=== PATIENT | male | born 1950 | race Caucasian/White ===

== ENCOUNTER 2018-08-27 22:31 | Observation (INO) | payer MEDICARE, BC ==
[2018-08-27 23:55] LABS: Mean Corpuscular HGB CONC 33.3 g/dL (32.0-36.0); Mean Corpuscular Hemoglobin 31.7 pg (27.0-31.0); Mean Corpuscular Volume 95.3 fL (78.0-98.0); Mean Platelet Volume 7.1 fL (7.4-10.4); Platelet Count 193 thou/uL (130-400); RBC Distribution Width 12.7 % (11.5-14.5); Red Blood Cell (RBC) Count 5.05 mill/uL (4.70-6.10); White Blood Cell (WBC) Count 7.3 thou/uL (4.8-10.8)
[2018-08-28 00:04] LABS: ALT (SGPT) 48 U/L (8-55); AST (SGOT) 71 U/L (5-34); Acetaminophen Less than 6.0 mcg/mL (10.0-30.0); Albumin 3.9 g/dL (3.4-4.8); Alcohol Less than 10 mg/dL (Less than 10); Alkaline Phosphatase 67 U/L (40-150); Anion Gap 13 mmol/L (10-20); BUN (Urea Nitrogen) 11 mg/dL (8.4-25.7); Bilirubin, Total 0.8 mg/dL (0.2-1.2); Calc. Creatinine Clearance 0 mL/min (70-130); Calcium 9.2 mg/dL (7.8-10.44); Carbon Dioxide 27 mmol/L (23-31); Chloride 99 mmol/L (98-107); Estimated GFR-MDRD Greater than 90; Globulin 2.9 g/dL (2.4-3.5); Glucose 111 mg/dL (80-115); Potassium 3.4 mmol/L (3.5-5.1); Protein, Total 6.8 g/dL (5.8-8.1); Salicylate Less than 8.0 mg/dL (15.0-30.0); Sodium 136 mmol/L (136-145)
[2018-08-28 00:15] LABS: Band 5 % (5-11); Eosinophils 10 % (0-10); Lymphocytes 15 % (21-51); MDiff Complete? YES; Monocytes 14 % (0-10); Neutrophil 56 % (42-75)
[2018-08-28 00:43] LABS: Bilirubin Negative (Negative); Blood, Urine Negative (Negative); Clarity CLEAR (Clear); Glucose, Urine (Dipstick) Negative (Negative); Leukocyte Negative (Negative); Nitrite Negative (Negative); Protein, Urine (Dipstick) Negative (Neg-Trace); Specific Gravity, Urine 1.005 (1.002-1.036); Urobilinogen 0.2 mg/dL (0.2-1.0); pH, Urine 6.5 (5.0-9.0)
[2018-08-28 00:53] LABS: Amphetamine Not Detected (NotDetected); Barbiturates Screen Not Detected (NotDetected); Benzodiazepine Screen Not Detected (NotDetected); Cocaine Metabolite Screen Not Detected (NotDetected); Medtox Control Line Valid? VALID (VALID); Medtox Reader # READER 4; Methadone Not Detected (NotDetected); Methamphetamine Not Detected (NotDetected); Opiate Screen Not Detected (NotDetected); Oxycodone Screen Not Detected (NotDetected); Phencyclidine (PCP) Not Detected (NotDetected); THC/Cannabinoid Screen Not Detected (NotDetected); Tricyclic Screen Not Detected (NotDetected)
[2018-08-28 04:30] VITALS: BMI 32.7
[2018-08-28] MEDS ORDERED: Acetaminophen/Codeine 30-300mg Tablet PO PRN (04:57)
[2018-08-28] MEDS ORDERED: Nitroglycerin 0.4 MG TAB (25 Tab Bottle) PO PRN (05:49)
[2018-08-28] MEDS ORDERED: Calcium Carbonate 500 MG ChewTAB PO PRN (05:51)
[2018-08-28] MEDS ORDERED: Ondansetron ODT 4 MG TAB PO PRN (05:51)
[2018-08-28] MEDS ORDERED: Ondansetron PF 4 MG/2 ML Vial IVP PRN (05:51)
--- NOTE | 2018-08-28 06:35 | HP ---
PRIMARY CARE PHYSICIAN: Dr. Gigi Fraser. CHIEF COMPLAINT: Seizure. HISTORY OF PRESENT ILLNESS: The patient is a 68-year-old male with hypertension, presented to the emergency room with above complaints. History obtained from the patient and ER records. No family at the bedside. The patient felt apparently normal last night when he went to sleep. He had an episode of seizure, while he was sleeping. According to the spouse, the patient was apneic and unresponsive at that time. The spouse started doing CPR on the patient with rescue breaths. He also bit his tongue. There is no incontinence reported. No previous episode of seizure. He had mild headache, which has resolved. He also had left ankle tenderness after the above episode. He denies any ankle pain prior to the seizure episode. He denies any chest pain, palpitations, lightheadedness, dizziness, or syncope. Three to four months ago, he was found to have lightheadedness and dizziness, which was attributed to hypertension. He was started on hydrochlorothiazide at that time. PAST MEDICAL HISTORY: 1. Hypertension. 2. Degenerative joint disease. PAST SURGICAL HISTORY: 1. Right ankle surgery. 2. Right knee surgery. 3. Colon resection. ALLERGIES: THE PATIENT IS ALLERGIC TO SULFA. CURRENT HOME MEDICATIONS: 1. Hydrochlorothiazide 25 mg daily. 2. Multivitamin one tablet daily. 3. Aspirin 81 mg daily. 4. Tylenol as needed. SOCIAL HISTORY: The patient currently lives at home with his family. He makes his own decision with the help of his spouse. He is a former smoker. No current use of alcohol, tobacco, or drug use. FAMILY HISTORY: Negative for heart disease, CVA, or seizures. REVIEW OF SYSTEMS: All other review of systems was reviewed and were found negative. PHYSICAL EXAMINATION: VITAL SIGNS: Temperature 98.1, respirations 18, pulse rate of 93, blood pressure of 143/92 with O2 saturation 94% on room air. GENERAL: A 68-year-old male, in no apparent distress. HEENT: Head, atraumatic and normocephalic. Sclerae anicteric. Moist mucous membranes. No oral lesion except for erythema over the left side of the tongue from tongue biting. NECK: Supple. No JVD. No carotid bruit. No neck stiffness. LUNGS: Clear to auscultation bilaterally. No wheezing, rales, or rhonchi. HEART: S1 and S2 present. Regular rate and rhythm. No rubs or gallops appreciated. 2/6 systolic murmur over the mitral area. ABDOMEN: Soft, nontender. Bowel sounds present. EXTREMITIES: No edema or calf tenderness. NEUROLOGIC: Cranial nerves 2 through 12 are normal on examination. Power was 5/5 in all extremities. Ckhhas-wa-klxt and dlhu-mr-uyli tests were normal. Reflexes were equivocal. PSYCHIATRY: Alert, awake, and oriented x3. Normal affect. MUSCULOSKELETAL: No joint swelling or tenderness except for some discomfort in the left ankle with splint in place. SKIN: Warm and dry. LYMPH NODES: No palpable lymph nodes in the neck. PERIPHERAL VASCULAR: Radial pulses palpable bilaterally. LABORATORY FINDINGS: WBC 7.3 with hemoglobin 16, hematocrit 48.2, and platelet count of 193. Sodium 136, potassium 3.4, chloride 99, bicarb 27, BUN 11, creatinine 0.81, prolactin 17.7, and magnesium 2.0. UDS was negative. Urinalysis was negative. CT scan of the brain by my review was negative for acute findings. EKG by my review showed sinus rhythm with incomplete right bundle-branch block. IMPRESSION: 1. New onset seizure of unclear etiology. 2. History of dizziness. 3. Incomplete right bundle-branch block. 4. Hypertension. 5. Hypokalemia. 6. Obesity with a BMI of 32.7. 7. Mild headache, improved. 8. Left ankle pain of unclear etiology. X-rays were negative for fracture. 9. Encephalopathy secondary to seizure, improved. PLAN: The patient will be monitored in the stroke unit. Neurology will be consulted. We will get MRI of the brain. Seizure precaution. Gentle IV hydration. We will get EEG. We will hold antiepileptics for now. We will also add echocardiogram due to dizziness. We will recheck labs in a.m. Plan of care was discussed with the patient in detail. He stated understanding. Job ID: [id number]
[2018-08-28] MEDS: NS 0.9% w/ 20 MEQ KCL 1,000 ML/1,000 ML BAG IV SCH ×2 (06:53→18:11)
--- NOTE | 2018-08-28 08:44 | CT ---
PRELIMINARY REPORT/[facility]/EMERGENCY AFTER HOURS PROCEDURE: EXAM: CT Head Without Contrast EXAM DATE/TIME: 08/28/2018 12:26 AM CLINICAL HISTORY: 68 years old, male; Signs and symptoms; Other: Seizure; Patient HX: 68m presents for evaluation of po ssible seizure prior to arrival. PT is unsure of what happened. PT sreports his found him seizin g but he has no recollection of the events. PT says he woke up to 2 medics tending to him. Recalls having a normal day with nothing unusual happening. Surgical HX of resected colon d/t diverti culitis. PT denies headache. TECHNIQUE: Imaging protocol: Axial computed tomography images of the head/brain without contrast. COMPARISON: No relevant prior studies available. FINDINGS: Brain: No hemorrhage. No significant white matter disease. No edema. Ventricles: No ventriculomegaly. Bones/joints: Unremarkable. No acute fracture. Sinuses: Visualized sinuses are unremarkable. No acute sinusitis. Mastoid air cells: Visualized mastoid air cells are unremarkable. No mastoid effusion. Soft tissues: Unremarkable. IMPRESSION: No acute intracranial abnormality. Thank you for allowing us to participate in the care of your patient. Dictated and Authenticated by: Francis Servin MD 08/28/2018 1:04 AM Central Time ([place] & [place]) FINAL REPORT CT OF THE BRAIN WITHOUT CONTRAST: Date: 08/27/18 INDICATION: History of seizure. IMPRESSION: I agree with the preliminary report provided by [facility]. No acute intracranial abnormality is evident. POS:
[2018-08-28] MEDS: Acetaminophen 325 MG TAB PO PRN ×2 (08:58→20:29)
--- NOTE | 2018-08-28 09:34 | RAD ---
LEFT ANKLE 3 VIEWS: Date: 08/28/18 INDICATION: Seizure and fall. COMPARISON: None. FINDINGS: There is ankylosis of the distal tibia and fibula syndesmosis. There is severe osteoarthrosis of the tibiotalar joint. There is prominent enthesopathic change off the calcaneus. There is soft tissue swe lling surrounding the hindfoot. No acute fracture is evident. IMPRESSION: Prominent post-traumatic/post operative osseous changes. There is soft tissue swelling. No acute frac ture is evident. POS: BH
--- NOTE | 2018-08-28 10:45 | MRI ---
MRI OF THE BRAIN WITHOUT IV CONTRAST: Date: 08/28/18 INDICATION: New onset seizures. COMPARISON: CT of the brain without contrast dated 08/28/18. FINDINGS: There is mild chronic small vessel white matter ischemic change. No restricted diffusion is evident. Motion artifact slightly limits image detail. There are appropriate flow-voids within the major intra cranial vessels. Septum pellucidum and third ventricle are midline. Skull and extracranial soft tissu es appear within normal limits. There are bilateral mastoid effusions. There is mild mucosal thickeni ng within the ethmoid air cells. IMPRESSION: 1. No acute intracranial abnormality. 2. Mild chronic small vessel white matter ischemic change. 3. Bilateral partial effusions of mastoid air cells. 4. Mild paranasal sinus disease. POS: BH
--- NOTE | 2018-08-28 11:59 | PDOC.PN ---
- Subjective Encounter Start Date: 08/28/18 Encounter Start Time: 11:57 Mr. Weiss was seen today in follow-up of seizures. He does not have any complaints today. He denies chest pain or shortness of breath. He denies having any problems prior to having the seizure that night. He was notes to be hypoxemic by his nurse earlier today when he was laying down. He did not have any symptoms during the episode - Objective Resuscitation Status - Order Detail: 08/28/18 05:51 Resuscitation Status Routine Resuscitation Status: FULL: Full Resuscitation MAR Reviewed: Yes Vital Signs & Weight: Vital Signs (12 hours) Temp Pulse Resp BP Pulse Ox 08/28/18 08:00 98.5 F 86 18 152/91 H 93 L 08/28/18 04:15 97.8 F 94 18 134/85 95 Weight Weight 215 lb 4.8 oz I&O: 08/27/18 08/28/18 08/29/18 06:59 06:59 06:59 Intake Total 100 Balance 100 Result Diagrams: 08/27/18 23:33 08/27/18 23:33 Phys Exam - Physical Examination HEENT: PERRLA + rhonchi at both bases Cardiovascular: RRR, no significant murmur, no rub Gastrointestinal: soft, non-tender, no distention, positive bowel sounds Musculoskeletal: no edema, pulses present Dx/Plan (1) Seizure Code(s): R56.9 - UNSPECIFIED CONVULSIONS Status: Acute (2) Hypoxemia Code(s): R09.02 - HYPOXEMIA Status: Acute (3) Hypertension Code(s): I10 - ESSENTIAL (PRIMARY) HYPERTENSION Status: Acute (4) Obesity (BMI 30.0-34.9) Code(s): E66.9 - OBESITY, UNSPECIFIED Status: Acute - Plan * Seizure- ? etiology- MRI of the brain was negative for Acute CVA * Neurology has recommended starting Keppra * HTN- blood pressure is a bit elevated- will monitor * Hypoxemia- will check a CXR, and D-Dimer, he may need CTA of the chest. He may also benefit from an Outpatient sleep study
[2018-08-28 12:45] LABS: Troponin I Less than 0.010 ng/mL (< 0.028)
--- NOTE | 2018-08-28 13:03 | RAD ---
EXAM: Two views chest PROVIDED CLINICAL HISTORY: Hypoxemia COMPARISON: None FINDINGS: Cardiac and mediastinal silhouette appears within normal limits. Chronic appearing interstitial opaci ty and possible emphysematous change. Advanced bilateral glenohumeral arthrosis. No pleural fluid or pneumothorax apparent. IMPRESSION: Chronic appearing interstitial opacities and emphysematous change. No evidence for an acute cardiopul monary process.
--- NOTE | 2018-08-28 23:41 | CON ---
DATE OF CONSULTATION: 08/28/2018 CHIEF COMPLAINT: Seizure. HISTORY OF PRESENT ILLNESS: The patient reports his watched him have a seizure between 6 to 7 p.m. yesterday. He quit breathing. He bit his tongue and urinated in the bed. She started doing CPR and brought him to the hospital. The patient never had a seizure before and he has been quite healthy. He did have a dizzy spell 6 months ago due to hypertension, but not seizures. Currently, he is back to baseline. PREVIOUS MEDICAL HISTORY: Hypertension, he has been on hydrochlorothiazide for it and degenerative joint disease. PREVIOUS SURGICAL HISTORY: Right ankle surgery, right knee surgery, and colon resection due to infection. ALLERGIES: HE IS ALLERGIC TO SULFA. MEDICATIONS: At home, hydrochlorothiazide, multivitamin, aspirin, and Tylenol as needed. SOCIAL HISTORY: Lives at home with his family and he is a former smoker. Does not drink alcohol. FAMILY HISTORY: His mother at 92 years of age. Father young when the patient was 6 years old. He has a sister who is 71 years old and healthy. REVIEW OF SYSTEMS: PULMONARY: Negative for lung problems. GI: Negative for any bleeding, diarrhea, or vomiting. NEUROLOGICAL: Positive for seizure. DERMATOLOGIC: Negative for skin rash or itching. HEMATOLOGIC: Negative for bleeding diathesis. OPHTHALMOLOGIC: Negative for any eye problems. ENT: Negative for any hearing issues. LABORATORY DATA: White count was 7.3, hemoglobin 16, hematocrit 48.2, platelet count 193. D-dimer 1.98. Chemistry; sodium 136, potassium 3.4, chloride 99, bicarb 27, anion gap 13, BUN 11, creatinine 0.81, glucose 111. Liver functions were within normal limits. UA was negative. Urine tox negative. His MRI of the brain was completed today and MRI showed no acute intracranial abnormality. Mild chronic small-vessel white matter ischemic change. Bilateral partial effusions of mastoid air cells. Mild paranasal sinus disease. PHYSICAL EXAMINATION: VITAL SIGNS: Blood pressure 152/91, temperature 98.5, pulse 86, respiratory rate 18. CHEST: Clear vesicular breathing. CARDIOVASCULAR: S1 and S2 heard. No murmurs. HEENT: Examination of oral cavity, he had tongue biting on the left side. NEUROLOGIC: Higher intellectual functions, normal orientation to time, place, and person and appropriate conversation. Cranial nerves 2 through 12, normal extraocular movements. Pupils are 2 mm, reactive to light bilaterally and normal sensation of face bilaterally. Tongue midline. No atrophy noted. Normal elevation of palate. Motor examination, bulk normal, tone normal, strength 5/5 in upper and lower extremities bilaterally. Muscle groups tested are iliopsoas, hamstrings, quadriceps, ankle dorsiflexion, plantar flexion, deltoid, biceps, triceps, wrist extension and flexion, finger extension and flexion bilaterally. His sensory exam was normal to touch bilaterally in upper and lower extremities and his deep tendon reflexes were 2+ throughout and gait not tested. He did have some ankle pain in the left leg due to his ankle getting twisted in the process. IMPRESSION: The patient with a seizure yesterday with tongue biting and he had to have CPR performed. He is at risk for future seizures. His MRI is negative and at this time, his neurological examination is essentially normal. TREATMENT RECOMMENDATIONS: Please place the patient on IV Keppra and EEG tomorrow and please call Neurology if you have any further questions. Job ID: [id number]
[2018-08-29 05:44] LABS: #Eosinphils 0.2 thou/uL (0.0-0.7); #Lymphocytes 1.5 thou/uL (1.20-3.40); #Neutrophils 4.9 thou/uL (1.40-6.50); %Basophils 0.5 % (0.0-1.0); %Eosinophils 3.2 % (0.0-10.0); %Lymphocytes 19.1 % (21.0-51.0); %Monocytes 12.5 % (0.0-10.0); %Neutrophils 64.8 % (42.0-75.0); Hemoglobin 14.7 g/dL (14.0-18.0); Mean Corpuscular HGB CONC 32.7 g/dL (32.0-36.0); Mean Corpuscular Hemoglobin 31.6 pg (27.0-31.0); Mean Corpuscular Volume 96.7 fL (78.0-98.0); Mean Platelet Volume 7.5 fL (7.4-10.4); Platelet Count 155 thou/uL (130-400); RBC Distribution Width 12.9 % (11.5-14.5); Red Blood Cell (RBC) Count 4.66 mill/uL (4.70-6.10); White Blood Cell (WBC) Count 7.6 thou/uL (4.8-10.8)
[2018-08-29 06:03] LABS: Albumin 3.4 g/dL (3.4-4.8); Anion Gap 11 mmol/L (10-20); BUN (Urea Nitrogen) 9 mg/dL (8.4-25.7); BUN/Creatinine Ratio 14.52; Calc. Creatinine Clearance 158 mL/min (70-130); Calcium 8.2 mg/dL (7.8-10.44); Carbon Dioxide 23 mmol/L (23-31); Chloride 108 mmol/L (98-107); Estimated GFR-MDRD Greater than 90; Glucose 90 mg/dL (80-115); Phosphorus 2.4 mg/dL (2.3-4.7); Potassium 3.4 mmol/L (3.5-5.1); Sodium 139 mmol/L (136-145)
[2018-08-29] MEDS: NS 0.9% w/ 20 MEQ KCL 1,000 ML/1,000 ML BAG IV SCH ×2 (06:20→16:13)
[2018-08-29] MEDS ORDERED: Iopamidol 370 76% 100 ML VIAL ONE (09:37)
--- NOTE | 2018-08-29 11:03 | CT ---
Exam: CTA of the chest HISTORY: Elevated d-dimer and hypoxia COMPARISON: None TECHNIQUE: Multiple contiguous axial images were obtained a CTA of the chest with contrast per pulmon juancarlos embolism protocol. 3-D oblique MIP reformats and direct coronal reformats were performed. FINDINGS: HEART: Normal in size without focal cardiac abnormality. Calcification are seen in the coronary arter ies. PULMONARY ARTERIES: Normal in caliber without filling defects to suggest pulmonary emboli. MEDIASTINUM: No hilar or mediastinal lymphadenopathy. LUNGS: No focal infiltrates or masses. Increased interstitial markings are seen along the periphery o f the bilateral lower lobes. PLEURAL SPACE: No pleural effusion or pneumothorax. CHEST WALL SOFT TISSUES: Unremarkable VISUALIZED OSSEOUS STRUCTURES: Degenerative changes are seen in the spine. VISUALIZED SUBDIAPHRAGMATIC STRUCTURES: Unremarkable IMPRESSION: No evidence of pulmonary thromboembolism
[2018-08-29 15:36] VITALS: TEMP 99.2
[2018-08-29 15:48] VITALS: BP 132/96
--- NOTE | 2018-08-30 09:42 | EEG ---
Referring Physician: Patti LAINEZ EEG # [id number] TEST TYPE: ROUTINE PORTABLE INPATIENT REPORT: AN EEG USING THE INTERNATIONAL TEN-TWENTY SYSTEM OF ELECTRODE PLACEMENT WAS PERFORMED. The waking background is a medium amplitude 9 hertz alpha frequency. The patient became drowsy, but no sleep was seen. Photic stimulation was unremarkable. No epileptiform features were seen. IMPRESSION: THIS IS A NORMAL AWAKE AND DROWSY EEG. [employer] T[employer] Inspector: ERASMO Toy Stuffer: [email or web address] SMITH
== END 2018-08-29 17:07 | disposition home or self-care (01) ==
LOC: ERS 22:31 → 2SE 08-28 03:36
PROVIDERS: ADMIT Internal Medicine; ATTEND Internal Medicine
DX: R56.9 Unspecified convulsions (principal); G93.40 Encephalopathy, unspecified; I10 Essential (primary) hypertension; M19.90 Unspecified osteoarthritis, unspecified site; M25.572 Pain in left ankle and joints of left foot; I45.19 Other right bundle-branch block; E87.6 Hypokalemia; R51 Headache; R09.02 Hypoxemia; R79.1 Abnormal coagulation profile; E66.9 Obesity, unspecified; Z68.32 Body mass index [BMI] 32.0-32.9, adult; Z87.891 Personal history of nicotine dependence; Z79.82 Long term (current) use of aspirin; Z79.899 Other long term (current) drug therapy; Z88.2 Allergy status to sulfonamides; Z90.49 Acquired absence of other specified parts of digestive tract
CPT/HCPCS: 70450; 70551; 71046; 71275; 73610; 80053; 80069; 80306; 80307; 81003; 83735; 84146; 84443; 84484; 85025 ×2; 85379; 93005; 93306; 94760 ×2; 95816; 95819; 96365; 96366 ×2; 96367; 96376; 97116; 97139 ×2; 99285; G0378 ×2; 36415; J1953; J3480; Q9967

== ENCOUNTER 2018-11-29 06:41 | Emergency (ER) | payer MEDICARE, BC ==
[2018-11-29 07:48] LABS: #Basophils 0.1 thou/uL (0.0-0.2); #Eosinphils 0.4 thou/uL (0.0-0.7); #Lymphocytes 1.4 thou/uL (1.20-3.40); #Monocytes 0.6 thou/uL (0.11-0.59); #Neutrophils 2.3 thou/uL (1.40-6.50); %Basophils 1.2 % (0.0-1.0); %Eosinophils 8.1 % (0.0-10.0); %Monocytes 12.4 % (0.0-10.0); %Neutrophils 48.3 % (42.0-75.0); Hemoglobin 16.2 g/dL (14.0-18.0); Mean Corpuscular HGB CONC 31.3 g/dL (32.0-36.0); Mean Corpuscular Volume 95.8 fL (78.0-98.0); Platelet Count 296 thou/uL (130-400); RBC Distribution Width 13.1 % (11.5-14.5); Red Blood Cell (RBC) Count 5.39 mill/uL (4.70-6.10); White Blood Cell (WBC) Count 4.8 thou/uL (4.8-10.8)
[2018-11-29 08:10] LABS: ALT (SGPT) 38 U/L (8-55); AST (SGOT) 30 U/L (5-34); Albumin 3.8 g/dL (3.4-4.8); Alkaline Phosphatase 96 U/L (40-150); Anion Gap 21 mmol/L (10-20); BUN (Urea Nitrogen) 17 mg/dL (8.4-25.7); Bilirubin, Total 0.4 mg/dL (0.2-1.2); Calc. Creatinine Clearance 0 mL/min (70-130); Carbon Dioxide 20 mmol/L (23-31); Chloride 102 mmol/L (98-107); Estimated GFR-MDRD 90; Globulin 2.7 g/dL (2.4-3.5); Glucose 115 mg/dL (80-115); Potassium 4.1 mmol/L (3.5-5.1); Protein, Total 6.5 g/dL (5.8-8.1); Sodium 139 mmol/L (136-145)
== END 2018-11-29 10:00 | disposition home or self-care (01) ==
LOC: ERS 06:41
DX: R56.9 Unspecified convulsions (principal); Z87.891 Personal history of nicotine dependence
CPT/HCPCS: 80053; 80164; 85025; 93005

== ENCOUNTER 2019-03-12 23:26 | Emergency (ER) | payer MEDICARE, BC ==
[2019-03-13 02:15] LABS: Bilirubin Negative (Negative); Blood, Urine Negative (Negative); Clarity Clear (Clear); Glucose, Urine (Dipstick) Normal (Negative); Leukocyte Negative Leu/uL (Negative); Nitrite Negative (Negative); Protein, Urine (Dipstick) Negative (Neg-Trace); Urobilinogen Normal mg/dL (Less than 2)
[2019-03-13 02:18] LABS: #Basophils 0.1 thou/uL (0.0-0.2); #Eosinphils 0.3 thou/uL (0.0-0.7); #Monocytes 0.9 thou/uL (0.11-0.59); #Neutrophils 7.4 thou/uL (1.40-6.50); %Basophils 0.6 % (0.0-1.0); %Eosinophils 2.9 % (0.0-10.0); %Neutrophils 77.6 % (42.0-75.0); Hemoglobin 16.3 g/dL (14.0-18.0); Mean Corpuscular HGB CONC 32.1 g/dL (32.0-36.0); Mean Corpuscular Hemoglobin 30.2 pg (27.0-31.0); Mean Platelet Volume 7.6 fL (7.4-10.4); Platelet Count 175 thou/uL (130-400); RBC Distribution Width 11.8 % (11.5-14.5); Red Blood Cell (RBC) Count 5.39 mill/uL (4.70-6.10); White Blood Cell (WBC) Count 9.6 thou/uL (4.8-10.8)
[2019-03-13 02:38] LABS: ALT (SGPT) 48 U/L (8-55); AST (SGOT) 35 U/L (5-34); Acetaminophen Less than 6.0 mcg/mL (10.0-30.0); Alcohol Less than 10 mg/dL (Less than 10); Alkaline Phosphatase 94 U/L (40-110); Anion Gap 13 mmol/L (10-20); BUN (Urea Nitrogen) 18 mg/dL (8.4-25.7); Bilirubin, Total 0.6 mg/dL (0.2-1.2); Calc. Creatinine Clearance 0 mL/min (70-130); Calcium 9.6 mg/dL (7.8-10.44); Carbon Dioxide 26 mmol/L (23-31); Chloride 101 mmol/L (98-107); Estimated GFR-MDRD Greater than 90; Globulin 2.9 g/dL (2.4-3.5); Glucose 114 mg/dL (80-115); Magnesium 2.2 mg/dL (1.6-2.6); Potassium 3.7 mmol/L (3.5-5.1); Protein, Total 6.9 g/dL (5.8-8.1); Salicylate Less than 8.0 mg/dL (15.0-30.0); Sodium 136 mmol/L (136-145)
--- NOTE | 2019-03-13 07:28 | CT ---
PRELIMINARY REPORT/[facility]/EMERGENCY AFTER HOURS PROCEDURE PROCEDURE INFORMATION: Exam: CT Head Without Contrast Exam date and time: 03/13/2019 2:21 AM Clinical history: 68 years old, male; Patient HX: M68 presents to ED for seizures. PT reports 3 episodes since August, new onset. Reported seizure today, became disoriented and began salivating, shaking, did not lose consciousness. TECHNIQUE: Imaging protocol: Computed tomography of the head without contrast. COMPARISON: No relevant prior studies available. FINDINGS: Brain: Normal. No hemorrhage. Unremarkable white matter. No mass effect. Ventricles: Normal. No ventriculomegaly. Bones/joints: Unremarkable. No acute fracture. Sinuses: Visualized sinuses are unremarkable. No fluid levels. Mastoid air cells: Visualized mastoid air cells are well aerated. Soft tissues: Unremarkable. IMPRESSION: No acute intracranial hemorrhage. Thank you for allowing us to participate in the care of your patient. Dictated and Authenticated by: Cj Roper MD 03/13/2019 2:32 AM Central Time ([place] & [place]) FINAL REPORT HEAD CT WITHOUT CONTRAST: DATE: 03/13/2019 COMPARISON: 08/28/2018 HISTORY: Seizures. FINDINGS: I agree with the preliminary report. No intracranial hemorrhage, midline shift, or mass eff ect. IMPRESSION: No acute findings. Code QA Transcribed Date/Time: 03/13/2019 7:56 AM
--- NOTE | 2019-03-13 08:38 | CT ---
PRELIMINARY REPORT/[facility]/EMERGENCY AFTER HOURS PROCEDURE: PROCEDURE INFORMATION: Exam: CT Angiography Chest With Contrast Exam date and time: 03/13/2019 2:57 AM Clinical history: 68 years old, male; Pain; Chest pressure; Patient HX: M68 presents to ED for seizur es. PT reports 3 episodes since August, new onset. Reported seizure today, became disoriented and bega n salivating, shaking, did not loose consciousness, loss of bowel control, no medication given at time. PT reports takes kepra 2x daily, no missed doses, sees Dr. Cuevas. PT denies recent i llness, falls, hitting head. Reports he stopped drinking in August, has not drank since then. PT denie s any complaints at this time, no headache, reports he is at baseline now. Denies drug, alcohol abuse or recent change in medications. Hx- no HX of liver problems. TECHNIQUE: Imaging protocol: Computed tomographic angiography of the chest with intravenous contrast. 3D rendering: MIP reconstructed images were created and reviewed. COMPARISON: No relevant prior studies available. FINDINGS: Pulmonary arteries: There is no evidence of peripheral filling defects within the pulmonary arterial circulation to suggest pulmonary embolism. Aorta: The aorta is normal. There is no evidence of aortic dissection, leak, rupture, or other compli cations. Lungs: There is subpleural atelectasis of dependent portions of the lungs. Pleural space: Unremarkable. No pneumothorax. No pleural effusion. Heart: Unremarkable. No cardiomegaly. No pericardial effusion. Lymph nodes: Unremarkable. No enlarged lymph nodes. Bones/joints: There are left shoulder degenerative changes, partially visualized. Soft tissues: Unremarkable. IMPRESSION: There is no CT evidence of acute pulmonary embolism. Thank you for allowing us to participate in the care of your patient. Dictated and Authenticated by: Cj Roper MD 03/13/2019 3:30 AM Central Time ([place] & [place]) FINAL REPORT CT ANGIO OF CHEST PERFORMED WITH IV CONTRAST ENHANCEMENT WITH 3D RECONSTRUCTIONS: Date: 03/13/19 HISTORY: Elevated D-Dimer. Low O2 saturation. Shortness of breath. FINDINGS: The lungs are clear of any infiltrative process. There are some emphysematous type blebs within the u pper lobes and atelectatic changes in the lung bases. No pulmonary nodules or pleural effusions are i dentified. No significant mediastinal or hilar adenopathy. The thoracic aorta is normal in caliber. There is good pulmonary artery opacification with no CT evidence for pulmonary embolus. The visualized liver parenchyma shows no focal findings. Right adrenal gland is normal. Left adrenal gland is not visualized. IMPRESSION: No CT evidence for pulmonary embolus. This report is in agreement with the preliminary report issued by [facility]. POS: OFF
--- NOTE | 2019-03-13 09:12 | RAD ---
TWO VIEW CHEST: INDICATIONS: Seizure. PE. COMPARISON: 08/28/2018 FINDINGS: There is no evidence of consolidation or significant effusion. Interstitial opacities are present francisco aterally, similar appearing. The cardiac silhouette is stable in size. IMPRESSION: Stable chest with bilateral interstitial opacities that may relate to chronic interstitial lung disea se. Correlate clinically. POS: [facility]
[2019-03-13] MEDS ORDERED: ISOVUE-370 76%-LOCM 1 ML ONE (12:18)
== END 2019-03-13 04:51 | disposition home or self-care (01) ==
LOC: ERS 23:26
DX: R56.9 Unspecified convulsions (principal); I10 Essential (primary) hypertension; Z87.891 Personal history of nicotine dependence; Z79.82 Long term (current) use of aspirin; Z79.899 Other long term (current) drug therapy
CPT/HCPCS: 36415; 70450; 71046; 71275; 80053; 80307; 81003; 83735; 84484; 85025; 85379; 93005; Q9966